=== PATIENT | female | born 1940 | race Caucasian/White ===

== ENCOUNTER 2020-09-15 03:36 | Emergency (ER) | payer MEDICARE, BC ==
[2020-09-15] MEDS ORDERED: Fentanyl 100 MCG/2 ML VIAL ONE (04:06)
[2020-09-15 04:20] LABS: #Basophils 0.1 thou/uL (0.0-0.2); #Lymphocytes 2.6 thou/uL (1.20-3.40); #Monocytes 0.4 thou/uL (0.11-0.59); #Neutrophils 10.3 thou/uL (1.40-6.50); %Basophils 0.5 % (0.0-1.0); %Eosinophils 0.2 % (0.0-10.0); %Lymphocytes 19.2 % (21.0-51.0); %Monocytes 2.9 % (0.0-10.0); %Neutrophils 77.1 % (42.0-75.0); Hemoglobin 13.9 g/dL (12.0-16.0); Mean Corpuscular HGB CONC 33.8 g/dL (32.0-36.0); Mean Corpuscular Hemoglobin 28.8 pg (27.0-31.0); Mean Corpuscular Volume 85.2 fL (78.0-98.0); Mean Platelet Volume 6.8 fL (7.4-10.4); Platelet Count 246 thou/uL (130-400); RBC Distribution Width 12.5 % (11.5-14.5); Red Blood Cell (RBC) Count 4.84 mill/uL (4.20-5.40); White Blood Cell (WBC) Count 13.4 thou/uL (4.8-10.8)
[2020-09-15 04:22] LABS: ALT (SGPT) 21 U/L (8-55); Albumin 4.3 g/dL (3.4-4.8); Alkaline Phosphatase 87 U/L (40-110); Anion Gap 22 mmol/L (10-20); BUN (Urea Nitrogen) 22 mg/dL (9.8-20.1); Bilirubin, Total 0.6 mg/dL (0.2-1.2); Calc. Creatinine Clearance 0 mL/min (70-130); Calcium 9.7 mg/dL (7.8-10.44); Carbon Dioxide 16 mmol/L (23-31); Chloride 99 mmol/L (98-107); Globulin 3.9 g/dL (2.4-3.5); Glucose 178 mg/dL (83-110); Lipase 47 U/L (8-78); Potassium 4.2 mmol/L (3.5-5.1); Protein, Total 8.2 g/dL (6.0-8.3); Sodium 133 mmol/L (136-145)
[2020-09-15 04:35] LABS: AST (SGOT) 25 U/L (5-34)
[2020-09-15 07:56] LABS: SARS-CoV-2 NAA Rapid Test DETECTED (NotDetected)
--- NOTE | 2020-09-15 08:24 | CT ---
PRELIMINARY REPORT/[facility]/EMERGENCY AFTER HOURS PROCEDURE: EXAM: CT Abdomen and Pelvis Without Intravenous Contrast CLINICAL HISTORY: ABD PAIN TECHNIQUE: Axial computed tomography images of the abdomen and pelvis without intravenous contrast. CONTRAST: None. COMPARISON: None provided. FINDINGS: LUNG BASES: No basilar airspace consolidation or pleural effusion. LIVER: Unremarkable. GALLBLADDER AND BILE DUCTS: Unremarkable. No calcified stone. No ductal dilation. PANCREAS: Unremarkable. SPLEEN: Unremarkable. ADRENAL GLANDS: Unremarkable. KIDNEYS, URETERS, AND BLADDER: There are multiple cysts in both kidneys. No hydronephrosis. STOMACH AND BOWEL: There is a diffuse dilation of the small bowel and colon filled with fluid, suggest gastroenteritis. APPENDIX: No CT evidence for appendicitis. PERITONEUM: No free fluid. No free air. LYMPH NODES: No lymphadenopathy. REPRODUCTIVE: Unremarkable as visualized. VASCULATURE: No aortic aneurysm. ABDOMINAL WALL AND SOFT TISSUES: Unremarkable. BONES: No fracture or suspicious osseous abnormality. IMPRESSION: 1. There is a diffuse dilation of the small bowel and colon filled with fluid, suggest gastroenteriti s. 2. There are multiple cysts in both kidneys. No hydronephrosis. ELECTRONICALLY SIGNED BY: Debbie Irwin MD Sep 15, 2020 4:32:18 AM [employer] This report is intended for review by the ordering physician only, in accordance of law. If you recei ve this report in error, please call [facility] at [phone]. FINAL REPORT CT ABDOMEN AND PELVIS WITHOUT CONTRAST: Date: 09/15/2020 Comparison made with the prior exam of 07/04/2018 done at [facility]. The lung bases are clear. There are at least two cysts in the left lobe of the liver as before, the l argest measuring about 3.0 cm in size. They have not changed. The spleen, pancreas, adrenal glands, g allbladder, and abdominal aorta showed no acute findings within the limitations of a noncontrast stud y. Multiple renal cysts are present as before and are comparable in appearance. There is no hydroneph rosis. Similar to the prior exam, there are multiple fluid-filled loops of large and small bowel. While some small bowel loops are as big as 4.0 cm wide, there is no organization to these loops or transition p oint. The findings could represent an ileus and entities such as gastroenteritis come to mind. No bow el wall thickening or inflammatory changes seen around bowel. Very extensive sigmoid diverticulosis i s present without findings of diverticulitis. There is no sign of free air or free fluid. CT of the pelvis shows no pelvic masses, fluid collections, or inflammatory changes. IMPRESSION: 1. Diffuse fluid-filled loops of large and small bowel. Ileus and/or gastroenteritis should be consi dered. The pattern does not appear to be typical of a gross mechanical obstruction. 2. Diverticulosis without findings of diverticulitis. 3. Hepatic and renal cysts. 4. Not mentioned above, but present, is a small hiatal hernia, also not a new finding. Report in agreement with preliminary reading by [facility]. POS: HOME
--- NOTE | 2020-09-15 08:24 | RAD ---
PORTABLE CHEST: DATE: 09/15/20. FINDINGS: An AP portable film at 0614 is compared with a 05/20/2018 study. An NG tube has been attempted to be placed. Part of the tube is coiled in the patient's pharyngeal r egion and it likely enters the trachea. The tip appears that it may be in the right main bronchus. Obviously it should be retracted and repositioned. The heart is normal in size. The lungs are clear. No infiltrate or effusion was seen. IMPRESSION: No acute findings in the chest. Nasogastric tube needs to be removed and repositioned. CODE T POS: HOME
[2020-09-15] MEDS ORDERED: Ketorolac Tromethamine 30 MG/ML VIAL ONE (08:33)
== END 2020-09-15 08:49 | disposition short-term general hospital (02) ==
LOC: BURERS 03:36
DX: U07.1 COVID-19 (principal); K56.0 Paralytic ileus; Z79.899 Other long term (current) drug therapy; E78.5 Hyperlipidemia, unspecified; E78.00 Pure hypercholesterolemia, unspecified; I10 Essential (primary) hypertension
CPT/HCPCS: 0240U; 71045; 74176; 80053; 83690; 85025; 96361; 96374; 96375; J1885; J3010